=== PATIENT | female | born 1940 | race Caucasian/White ===

== ENCOUNTER 2024-06-20 13:05 | Inpatient (IN) ==
[2024-06-20] MEDS ORDERED: IOPAMIDOL 100 ML BOTTLE IV ONE (13:06)
[2024-06-20] MEDS: ASPIRIN 81 MG TAB.CHEW CHEWED ONE (13:35)
[2024-06-20 13:38] LABS: Basophils # (Auto) 0.02 K/mcL (0.00-0.30); Basophils % (Auto) 0.2 % (0.0-2.0); Eosinophils # (Auto) 0.05 K/mcL (0.00-0.70); Eosinophils % (Auto) 0.5 % (0.0-7.0); Hematocrit 38.6 % (34.1-44.9); Hemoglobin 12.4 g/dL (11.2-15.7); Lymphocytes # (Auto) 1.61 K/mcL (1.50-4.80); Lymphocytes % (Auto) 15.5 % (15.5-49.0); Mean Cell Volume 94.4 fL (80.0-100.0); Mean Corpuscular HGB Conc 32.1 g/dL (31.0-36.0); Mean Platelet Volume 9.8 fL (8.8-12.5); Monocytes # (Auto) 0.91 K/mcL (0.10-0.90); Monocytes % (Auto) 8.8 % (1.0-12.0); Neutrophils % (Auto) 74.9 % (38.0-78.0); Platelet Count 222 K/mcL (140-440); RBC 4.09 M/mcL (3.59-5.38); Red Cell Distribution Width 14.5 % (11.5-14.5); WBC 10.4 K/mcL (4.5-11.0)
[2024-06-20] MEDS: fentaNYL 100 MCG/2 ML VIAL IV ONE (13:42)
[2024-06-20 14:15] LABS: Appearance,Urine Clear (Clear); Bilirubin,Urine Negative (Negative); Color,Urine Yellow; Glucose,Urine (UA) Negative (Negative); Ketones,Urine Negative (Negative); Leukocyte Esterase,Urine Negative /uL (Negative); Nitrate,Urine Negative (Negative); Protein,Urine Negative (Negative); Specific Gravity,Urine 1.015 (1.000-1.035); Urine Blood Negative ery/mcL (Negative); Urobilinogen,Urine Normal
[2024-06-20] MEDS: METOPROLOL TARTRATE 5 MG/5 ML VIAL IV ONE ×2 (14:33→15:48)
[2024-06-20 14:45] LABS: ALT/SGPT 21 U/L (<40); AST/SGOT 30 U/L (<32); Albumin 4.2 gm/dL (3.2-5.2); Albumin/Globulin Ratio 1.6 (1.0-2.3); Alkaline Phosphatase 62 U/L (39-117); Bilirubin,Total 0.5 mg/dL (0.1-1.0); Blood Urea Nitrogen 14 mg/dL (8-23); Calcium 9.2 mg/dL (8.6-10.4); Carbon Dioxide 23 mmol/L (22-30); Chloride 93 mmol/L (96-108); Globulin 2.6 gm/dL (2.2-3.7); Glomerular Filtration Rate 80; Glucose 133 mg/dL (70-105); Potassium 3.4 mmol/L (3.3-5.1); Sodium 132 mmol/L (133-145)
[2024-06-20] MEDS: 0.9 % SODIUM CHLORIDE 500 ML IV ONE (15:48)
[2024-06-20] MEDS: DILTIAZEM 25 MG/5 ML VIAL IV ONE (15:48)
[2024-06-20] MEDS: DILTIAZEM 125 MG in 0.9 % SODIUM CHLORIDE 100 ML IV SCH (17:03)
[2024-06-20] MEDS: DILTIAZEM 125 MG in DEXTROSE 5% IN WATER 100 ML IV SCH (17:04)
[2024-06-20 17:19] LABS: Thyroid Stimulating Hormone 0.94 uIU/mL (0.27-5.01)
[2024-06-20] MEDS ORDERED: POLYETHYLENE GLYCOL 3350 17 GM PACKET PO PRN (17:32)
[2024-06-20] MEDS ORDERED: SENNOSIDES 1 TABLET PO PRN (17:32)
[2024-06-20] MEDS ORDERED: METOPROLOL TARTRATE 5 MG/5 ML VIAL IV PRN (17:32)
[2024-06-20] MEDS ORDERED: IPRATROPIUM/ALBUTEROL 3 ML AMPUL.NEB NEB PRN (17:32)
[2024-06-20] MEDS ORDERED: ONDANSETRON 4 MG/2 ML VIAL IV PRN (17:32)
[2024-06-20] MEDS ORDERED: METOCLOPRAMIDE 10 MG/2 ML VIAL IV PRN (17:32)
[2024-06-20] MEDS ORDERED: POTASSIUM CHLORIDE 40 MEQ in DEXTROSE 5% IN WATER 500 ML IV PRN (17:32)
[2024-06-20] MEDS ORDERED: POTASSIUM CHLORIDE 20 MEQ TABLET PO PRN ×2 (17:32)
[2024-06-20] MEDS ORDERED: MAGNESIUM SULFATE 2 GM/50 ML BAG IV PRN (17:32)
[2024-06-20] MEDS: DOCUSATE SODIUM 100 MG CAPSULE PO SCH (20:26)
[2024-06-20] MEDS: HYDROcodone/APAP 5/325MG TABLET PO PRN (20:26)
[2024-06-20] MEDS: ENOXAPARIN 40 MG/0.4 ML SYRINGE SQ SCH (20:28)
[2024-06-20] MEDS: ENOXAPARIN 60 MG/0.6 ML SYRINGE SQ SCH (21:09)
[2024-06-20] MEDS: 0.9 % SODIUM CHLORIDE 250 ML IV ONE (21:25)
[2024-06-20] MEDS ORDERED: ACETAMINOPHEN/DIPHENHYDRAMINE 1 TABLET PO PRN (21:29)
[2024-06-20] MEDS ORDERED: diphenhydrAMINE 25 MG CAPSULE PO PRN (21:38)
[2024-06-21] MEDS: METOPROLOL TARTRATE 25 MG TABLET PO SCH ×2 (00:31→09:02)
[2024-06-21 06:45] LABS: ALT/SGPT 15 U/L (<40); AST/SGOT 23 U/L (<32); Albumin 3.3 gm/dL (3.2-5.2); Albumin/Globulin Ratio 1.6 (1.0-2.3); Alkaline Phosphatase 52 U/L (39-117); Bilirubin,Direct 0.2 mg/dL (<0.3); Bilirubin,Total 0.4 mg/dL (0.1-1.0); Blood Urea Nitrogen 15 mg/dL (8-23); Calcium 8.6 mg/dL (8.6-10.4); Carbon Dioxide 24 mmol/L (22-30); Chloride 98 mmol/L (96-108); Globulin 2.1 gm/dL (2.2-3.7); Glomerular Filtration Rate 89; Glucose 105 mg/dL (70-105); Lactate Dehydrogenase 159 U/L (135-225); Phosphorous 3.8 mg/dL (2.5-4.5); Potassium 3.9 mmol/L (3.3-5.1); Sodium 132 mmol/L (133-145); Triglycerides 106 mg/dL (<150); Uric Acid 2.9 mg/dL (2.5-8.0)
[2024-06-21] MEDS: SUCRALFATE 1 GM/10 ML ORAL.SUSP PO ONE (14:19)
[2024-06-22 06:38] LABS: Blood Urea Nitrogen 13 mg/dL (8-23); Calcium 8.2 mg/dL (8.6-10.4); Carbon Dioxide 22 mmol/L (22-30); Chloride 100 mmol/L (96-108); Glomerular Filtration Rate 89; Glucose 105 mg/dL (70-105); Potassium 3.7 mmol/L (3.3-5.1); Sodium 134 mmol/L (133-145)
[2024-06-22 08:11] VITALS: TEMP 97.6
[2024-06-22] MEDS: ACETAMINOPHEN 500 MG TABLET PO PRN (10:00)
[2024-06-22 10:46] VITALS: O2SAT 96
== END 2024-06-22 10:30 | DRG 309 ==
LOC: ED 13:05 → ICU 17:25
PROVIDERS: ADMIT Internal Medicine; ATTEND Internal Medicine